=== PATIENT | female | born 2005 | race Caucasian/White ===

== ENCOUNTER 2023-09-30 17:35 | Emergency (ER) | payer SELFPAY ==
[~2023-09-30] VITALS: Ht 167.6 cm; Wt 54.5 kg
[2023-09-30 17:42] VITALS: TEMP 98.7
[2023-09-30 18:40] LABS: BASO % 0.3 % (0.0-2.0); EOS # 0.1 K/mm3 (0.0-0.7); EOS % 1.2 % (0.0-4.0); GRAN # 4.7 K/mm3 (1.4-6.5); GRAN % 65.1 % (42.2-75.2); HEMATOCRIT 38.3 % (35.0-45.0); HEMOGLOBIN 12.7 g/dl (12.0-15.0); LYMPH # 1.8 K/mm3 (1.2-3.4); LYMPH % 24.3 % (20.0-51.0); MEAN CELL VOLUME 81 fl (80.0-95.0); MEAN CORPUSCULAR HEMOGLOBIN 27 pg (26-32); MEAN CORPUSCULAR HGB CONC 33 g/dl (33.0-37.0); MEAN PLATELET VOLUME 10.5 fl (7.4-10.4); MONO # 0.7 K/mm3 (0.1-0.6); PLATELET COUNT 207 K/mm3 (130-400); RED BLOOD COUNT 4.74 M/mm3 (4.10-5.30); REDCELL DISTRIBUTION WIDTH-CV 14.1 % (11.5-14.5)
[2023-09-30 18:58] LABS: ALBUMIN 4.5 g/dL (3.5-5.0); BILIRUBIN,TOTAL 0.6 mg/dL (0.2-1.2); CALCIUM 10.1 mg/dL (8.4-10.2); CREATININE, serum 0.78 mg/dL (0.57-1.11); POTASSIUM 3.8 mEq/L (3.5-4.5); TOTAL PROTEIN 7.2 g/dl (6.2-8.1)
[2023-09-30 19:17] LABS: PROLACTIN 12.1 ng/mL (5.18-26.53)
[2023-09-30 19:50] VITALS: BP 125/87; PULSE 75
== END 2023-09-30 19:50 | disposition home or self-care (01) ==
LOC: COL.ER 17:35
PROVIDERS: Physician Assistant
DX: R55 Syncope and collapse (principal); E10.9 Type 1 diabetes mellitus without complications; W06.XXXA Fall from bed, initial encounter